=== PATIENT | female | born 1960 | race American Indian/Alaskan Native ===

== ENCOUNTER 2016-05-29 09:43 | Day surgery (SDC) | payer MEDICAID ==
[~2016-05-29 09:43] MED LIST: NACL 0.9% 1000 ML 1,000 ML IV SCH
[2016-05-29] MEDS ORDERED: WATER FOR IRRIG STERILE IR ONE (09:55)
[2016-05-29] MEDS ORDERED: TRIPLE ANTIBIOTIC TP ONE (12:33)
[2016-05-29 13:13] VITALS: BP 110/51
--- NOTE | 2016-05-29 13:35 | Operative Report ---
Operative Report Operative Report: Date of procedure: 05/29/2016 Procedure: Gastrostomy tube replacement Attending physician: Jose Roberto Chan MD Defence Intelligence Analyst: Jose Roberto Chan MD Indication: Gastrostomy tube malfunction Consent: Informed consent was obtained after advising the patient and family regarding nature of this procedure, its indications, potential benefits as well as possible complications including but not limited to bleeding perforation and adverse reaction to medication, infection as well as other cardiopulmonary complications. An informed written and verbal consent was then obtained after due opportunity was provided for questions and answers. Monitoring: Patient was monitored continuously with pulse oximetry and electrocardiographic recordings as well as blood pressure recordings. Vital signs remained stable throughout this procedure with no untoward events. Preoperative assessment: Patient was assessed immediately prior to this procedure for capacity to tolerate monitored anesthesia care and moderate sedation as well as general anesthesia. Patient's ASA classification is 3, Mallampati class is 2, Hyomental distance is 2. Instrument: 20 [place] non-balloon gastrostomy tube Medications: Triple Antibiotic for local application along with Betadine and Chloraseptic for cleaning Description of procedure: Patient was placed in supine position the gastrostomy tube site was inspected. The tube balloon was then deflated. The old malfunctioning gastrostomy tube was removed. After this the site was cleaned with Betadine and Chloraseptic. Subsequently this site was sterilely draped. A new gastrostomy tube was copiously lubricated with Triple Antibiotic and using traction was inserted into the site. The final position was 3.5. There was prompt return of gastric juice. The tube was then secured to the abdominal wall and the site was dressed. Patient tolerated procedure well with no untoward events. Impression: Successful gastrostomy tube replacement. Plan: Tube may be used for feeding and administration of medications. The tube site should be cleaned daily with peroxide and Betadine and dressed with dry gauze. The tube should be flushed 4 times daily with 100 mL of water and also flushed additionally after administration of medications or giving tube feeding. If the tube is accidentally dislodged, a metal painter should be notified immediately for replacement.
--- NOTE | 2016-05-29 13:35 | Discharge Summary ---
Short Stay Discharge Plan Activity: advance as tolerated Weight Bearing Status: Non-Weight Bearing Additional Instructions: G-tube Exchange D/C Instructions -You may then resume previous tube feedings. -Elevate the head of the bed 30 degrees during tube feedings, if bedridden. -DO NOT push or pull the tube. It is currently place at the 3 cm marking. -If the tube comes out, call your physician immediately.
== END 2016-05-29 09:44 | disposition home or self-care (01) ==
LOC: GIO 09:43
PROVIDERS: ATTEND Internal Medicine Gastroenterology
DX: K94.23 Gastrostomy malfunction (principal); D64.9 Anemia, unspecified; F32.9 Major depressive disorder, single episode, unspecified; Z87.891 Personal history of nicotine dependence
CPT/HCPCS: A6250